=== PATIENT | female | born 1940 | race Caucasian/White ===

== ENCOUNTER 2016-09-20 23:26 | Observation (INO) | payer MEDICARE, OTHER ==
[2016-09-20] MEDS ORDERED: ENTOCORT EC3 M1 PO (23:52)
[2016-09-21 00:38] LABS: BASO % 0.3 % (0-2); EOS % 2.7 % (0-7); EOSINOPHIL ABSOLUTE COUNT 0.4 tho/cmm (0.0-0.7); HCT-HEMATOCRIT 37.4 % (34.0-49.0); HGB-HEMOGLOBIN 12.7 gm/dl (12.0-15.5); IMMATURE GRANULOCYTES ABSOLUTE 0.04 tho/cmm (0-0.03); IMMATURE GRANULOCYTES PERCENT 0.3 % (0-0.3); LYMPH % 22.1 % (20-45); LYMPH ABSOLUTE COUNT 3.2 tho/cmm (0.8-4.5); MCH (MEAN CORPUSCULAR HGB) 31.1 pg (28.0-32.0); MCV (MEAN CELL VOLUME) 91.7 fl (82.0-96.0); MONO % 6.2 % (0-12); MONOCYTE ABSOLUTE COUNT 0.9 tho/cmm (0.0-1.2); NEUTROPHIL ABSOLUTE COUNT 9.8 tho/cmm (1.6-8.0); NEUTROPHIL-AUTOMATED 9.8 tho/cmm (1.6-8.0); NEUTROPHILS % 68.4 % (40-80); PLATELET COUNT 237 tho/cmm (150-450); RED BLOOD COUNT 4.08 mil/cmm (4.00-5.20); RED CELL DISTRIBUTION WIDTH 13.7 % (12.4-16.4); WHITE BLOOD COUNT 14.3 tho/cmm (4.0-10.0)
[2016-09-21 00:51] LABS: ALB/GLOB RATIO 1.2 (0.8-2.0); ALBUMIN 3.8 g/dl (3.5-5.0); ALKALINE PHOSPHATASE 61 U/L (33-138); ALT/SGPT 26 U/L (12-78); ANION GAP 15 mmol/L (0-20); AST/SGOT 24 U/L (10-40); BILIRUBIN,TOTAL 0.5 mg/dl (0-1.5); BLOOD UREA NITROGEN 22 mg/dl (6-24); CALCIUM 9.7 mg/dl (8.5-10.5); CARBON DIOXIDE-VENOUS 23 mmol/L (22-32); CHLORIDE 106 mmol/l (96-110); CREATININE 0.97 mg/dl (0.50-1.10); GLUCOSE 138 mg/dL (70-110); LIPASE 110 U/L (73-393); POTASSIUM 3.7 mmol/L (3.7-5.1); SODIUM 140 mmol/L (135-145); eGFR VALUE FOR BLACK 65 mL/Min
[2016-09-21 06:28] LABS: BASO % 0.2 % (0-2); EOS % 0.1 % (0-7); HCT-HEMATOCRIT 34.8 % (34.0-49.0); HGB-HEMOGLOBIN 11.8 gm/dl (12.0-15.5); IMMATURE GRANULOCYTES ABSOLUTE 0.01 tho/cmm (0-0.03); IMMATURE GRANULOCYTES PERCENT 0.1 % (0-0.3); LYMPH ABSOLUTE COUNT 1.4 tho/cmm (0.8-4.5); MCH (MEAN CORPUSCULAR HGB) 31.3 pg (28.0-32.0); MCHC MEAN CORPUSCULAR HGB CONC 33.9 % (32.0-36.0); MCV (MEAN CELL VOLUME) 92.3 fl (82.0-96.0); MEAN PLATELET VOLUME 9.7 cmc (9.4-12.4); MONOCYTE ABSOLUTE COUNT 0.4 tho/cmm (0.0-1.2); NEUTROPHIL ABSOLUTE COUNT 8.9 tho/cmm (1.6-8.0); NEUTROPHIL-AUTOMATED 8.9 tho/cmm (1.6-8.0); NEUTROPHILS % 82.6 % (40-80); PLATELET COUNT 190 tho/cmm (150-450); RED BLOOD COUNT 3.77 mil/cmm (4.00-5.20); RED CELL DISTRIBUTION WIDTH 13.9 % (12.4-16.4); WHITE BLOOD COUNT 10.7 tho/cmm (4.0-10.0)
[2016-09-21 06:43] LABS: ANION GAP 12 mmol/L (0-20); BLOOD UREA NITROGEN 24 mg/dl (6-24); CALCIUM 8.5 mg/dl (8.5-10.5); CARBON DIOXIDE-VENOUS 25 mmol/L (22-32); CHLORIDE 108 mmol/l (96-110); CREATININE 1.05 mg/dl (0.50-1.10); GLUCOSE 128 mg/dL (70-110); POTASSIUM 4.3 mmol/L (3.7-5.1); SODIUM 141 mmol/L (135-145); eGFR VALUE FOR BLACK 59 mL/Min
[2016-09-21] MEDS ORDERED: XANAX0.25 M1 PO (11:47)
[2016-09-21] MEDS ORDERED: MOMETASONE FURO45 G1 TOP (11:48)
[2016-09-21] MEDS ORDERED: PROTONIX40 M2 PO (11:48)
[2016-09-21] MEDS ORDERED: EXCEDRIN EXTRA1 EAC4 PO (11:49)
[2016-09-21] MEDS ORDERED: IBUPROFEN200 M3 PO (11:51)
[2016-09-21] MEDS ORDERED: VITAMIN C500 M3 PO (11:52)
[2016-09-21] MEDS ORDERED: MAGNESIUM OXID400 M1 PO (11:52)
[2016-09-21] MEDS ORDERED: CALCIUM CARBON500 M2 PO (11:52)
[2016-09-21] MEDS ORDERED: FLOMAX0.4 M1 PO (18:35)
[2016-09-21] MEDS ORDERED: COLACE100 M1 PO (18:38)
[2016-09-21] MEDS ORDERED: NORCO 5-325 TA1 EACH PO (18:38)
== END 2016-09-21 19:25 ==
LOC: EDMED 23:26 → EMR2 09-21 02:39 → 5WF 09-21 03:25 → ORW 09-21 15:42 → PACU 09-21 16:46 → 5WF 09-21 17:10
PROVIDERS: Emergency Medicine; ADMIT Urology
PROC: 0T768DZ Dilation of Right Ureter with Intraluminal Device, Via Natural or Artificial Opening Endoscopic (ICD-10-PCS; principal; 2016-09-21)
PROC: BT1DYZZ Fluoroscopy of Right Kidney, Ureter and Bladder using Other Contrast (ICD-10-PCS; 2016-09-21)
PROC: BT1DYZZ Fluoroscopy of Right Kidney, Ureter and Bladder using Other Contrast (ICD-10-PCS; 2016-09-21)
DX: N20.1 Calculus of ureter (principal); F41.9 Anxiety disorder, unspecified; Z98.890 Other specified postprocedural states; M81.0 Age-related osteoporosis without current pathological fracture; Z79.899 Other long term (current) drug therapy
CPT/HCPCS: C1769; C2617; G0378; J1170; J1885; J1956; J2270; J2405; J7030; Q9967